=== PATIENT | male | born 1995 | race Caucasian/White ===

== ENCOUNTER 2017-04-30 20:21 | Emergency (ER) | payer SELFPAY ==
--- NOTE | 2017-04-30 21:00 | EDPHY ---
H & P Smoking Status: Never smoked Time Seen by Provider: 04/30/17 20:39 HPI/ROS: CHIEF COMPLAINT: Left wrist pain HISTORY OF PRESENT ILLNESS: 22-year-old male arrives via private vehicle complaining of acute left radial wrist pain after he fell on outstretched left hand earlier this evening while skateboarding. No paresthesia. No sensory motor deficit. No proximal distal pain or injury. No injury. PHYSICAL EXAM (Prior to examination, patient consented to physical exam, hands were washed and my usual and customary physical exam procedures followed) 1) GENERAL: Well-developed, well-nourished, alert and oriented. Appears to be in no acute distress. 2) HEAD: Normocephalic 3) HEENT: Pupils equal, round, reactive to light bilaterally. 4) LUNGS: Breathing comfortably. 5) MUSCULOSKELETAL: Tender to palpation anatomic snuffbox Soft compartments. Normal coloration. 6) SKIN: no abrasion 7) VASCULAR: pulses and cap refill present are brisk 8) NEUROLOGIC: Radial, ulnar, median nerve function intact with no deficits appreciated on exam DIFFERENTIAL DIAGNOSIS: in no particular order including but not limited to fracture, sprain, compartment syndrome Procedure: Splint A Velcro thumb spica splint was applied by ER electro mechanical solar technician. After application of the splint I returned and re-examined the patient. The splint was adequately immobilizing the joint and distal to the splint the patient's circulation and sensation were intact. Patient shows no signs of compartment syndrome. Was given orthopedic precautions. (Hunter Saleem) Constitutional: Initial Vital Signs Temperature (C) 37.1 C 04/30/17 20:21 Heart Rate 84 04/30/17 20:21 Respiratory Rate 18 04/30/17 20:21 Blood Pressure 132/84 H 04/30/17 20:21 O2 Sat (%) 96 04/30/17 20:21 O2 Delivery Mode Room Air Allergies/Adverse Reactions: Penicillins Allergy (Verified 04/30/17 20:25) Home Medications: Medication Instructions Recorded NK [No Known Home Meds] 04/30/17 MDM/Departure - MDM Imaging Results: Images reviewed by myself (Hunter Saleem) ED Course/Re-evaluation: Patient has no evidence of syndrome, he is neurovascular intact. Discussed his x-rays. I discussed the importance of close follow-up for navicular fracture and discussed the potential complications for failure follow up with Orthopedics. He has been splinted. He has been provided usual and customary orthopedic precautions and instructions. (Hunter Saleem) The patient was evaluated and managed by the physician administrative assistant coordinator. I have reviewed this chart and I agree with the findings and plan of care as documented , as indicated by my signature. I am the secondary supervising physician. ( Alison Lopez) - Depart Disposition: Home, Routine, Self-Care Clinical Impression: Left carpal navicular fracture Qualifiers: Encounter type: initial encounter Scaphoid bone location: unspecified portion of scaphoid Fracture type: closed Fracture alignment: nondisplaced Qualified Code(s): S62.002A - Unspecified fracture of navicular [scaphoid] bone of left wrist, initial encounter for closed fracture Condition: Good Instructions: Wrist Fracture in Adults (ED) Additional Instructions: Adult Pain & Fever Control: We recommend Acetaminophen (Tylenol) and Ibuprofen (Motrin,Advil) for pain and fever control. When fever is high or pain severe, both drugs can be used at the same time, but at different intervals. Please note the time differences. Your dose is: Acetaminophen 650mg every 4 to 6 hours Ibuprofen 600mg every 6 hours with food OR Note: do not take Acetaminophen with Hydrocodone (Vicodin, Lortab) or Oycodone (Percocet). These medications also contain Acetaminophen. No more than 3000mg of Acetaminophen should be taken in 24 hours (for an adult). Return to the ER immediately if you experience discoloration, have worsening pain, numbness, tingling, or any other symptoms that concern you. If you received x-rays in the emergency department today, be advised, that ligamentous , tendon, muscular, and other non-bony injury cannot be fully ruled out. Try to keep your affected extremity elevated above the level of your chest, and keep cold packs on the affected area, for the next 48 hours. Referrals: Jin Cm MD [Medical Doctor] - 2-3 days, call for appt.
[2017-04-30 21:26] VITALS: BP 122/86; PULSE 82; RESP 16; TEMP 98.1; O2SAT 95
== END 2017-04-30 21:24 | disposition home or self-care (01) ==
DX: S62.002A Unspecified fracture of navicular [scaphoid] bone of left wrist, initial encounter for closed fracture (principal); V00.131A Fall from skateboard, initial encounter; Y99.8 Other external cause status; Y93.51 Activity, roller skating (inline) and skateboarding
CPT/HCPCS: L3807